=== PATIENT | male | born 1960 | race Hispanic/Latino ===

== ENCOUNTER 2022-12-07 12:02 | Emergency (ER) | payer OTHER ==
[~2022-12-07] VITALS: Ht 162.6 cm; Wt 81.6 kg
[2022-12-07 12:26] LABS: RAPID GROUP A STREP negative (NEGATIVE)
[2022-12-07 12:31] LABS: SARS-CoV-2, RNA, NAAT POSITIVE SARS CoV-2 (NEGATIVE)
[2022-12-07 12:36] LABS: INFLUENZA TYPE A Negative For Type A (NEGATIVE); INFLUENZA TYPE B Negative For Type B (NEGATIVE)
[2022-12-07] MEDS ORDERED: MOLN200C PO (12:48)
[2022-12-07] MEDS ORDERED: BENZ200C53 PO (12:48)
[2022-12-07 14:02] VITALS: BP 145/86; PULSE 99; RESP 18; O2SAT 99
== END 2022-12-07 14:14 | disposition home or self-care (01) ==
LOC: EDH 12:02
DX: U07.1 COVID-19 (principal); B34.9 Viral infection, unspecified; I10 Essential (primary) hypertension; E78.00 Pure hypercholesterolemia, unspecified; Z98.890 Other specified postprocedural states
CPT/HCPCS: 99283; 87635; 87880; 87804 ×2; C9803